=== PATIENT | female | born 1950 | race Hispanic/Latino ===

== ENCOUNTER 2018-11-25 06:53 | Observation (INO) | payer MEDICARE ==
[2018-11-22 12:31] LABS: BASOPHILS # (AUTO) 0.1 (0.0-0.1); BASOPHILS % 0.5 % (0.0-1.0); EOSINOPHILS # (AUTO) 0.3 (0.0-0.4); EOSINOPHILS % 1.9 % (0.0-6.0); HEMATOCRIT 37.9 % (34.2-44.1); HEMOGLOBIN 12.2 g/dL (12.0-16.0); LYMPHOCYTES # (AUTO) 1.3 (1.0-3.2); LYMPHOCYTES % 7.9 % (18.0-39.1); MEAN CORPUSCULAR HEMOGLOBIN 29.7 pg (28-32); MEAN CORPUSCULAR HGB CONC 32.2 g/dL (31-35); MEAN CORPUSCULAR VOLUME 92.2 fL (81-99); MONOCYTES # (AUTO) 0.8 (0.2-0.8); MONOCYTES % 5.1 % (4.4-11.3); NEUTROPHILS # (AUTO) 13.6 (2.1-6.9); NEUTROPHILS % 81.5 % (38.7-80.0); PLATELET COUNT 249 x10e3/uL (140-360); RED BLOOD COUNT 4.11 x10e6/uL (3.6-5.1); RED CELL DISTRIBUTION WIDTH 16.1 % (11.7-14.4)
[2018-11-22 12:51] LABS: ALBUMIN 3.8 g/dL (3.5-5.0); ALBUMIN/GLOBULIN RATIO 1.2 (0.8-2.0); ANION GAP 15.3 mmol/L (8-16); CREATININE, SERUM 1.13 mg/dL (0.57-1.11); POTASSIUM 4.3 mmol/L (3.5-5.1)
--- NOTE | 2018-11-22 13:14 | Diagnostic Imaging Report ---
EXAM: CHEST 2 VIEWS DATE: 11/22/2018 12:19 PM INDICATION: Epigastric pain, preoperative evaluation COMPARISON: None Impression: The trachea is midline. There are nonspecific mildly increased interstitial/reticular opacities present bilaterally. Differential considerations include edema, scarring/fibrotic change, or an atypical infectious/inflammatory process. There is no evidence for large focal consolidation, pneumothorax, or significant pleural effusion. The cardiomediastinal silhouette is within normal limits. No acute osseous abnormalities identified. Signed by: Dr. Bhupinder Tovar MD on 11/22/2018 1:11 PM
[~2018-11-25] VITALS: Ht 157.5 cm; Wt 78.9 kg
[~2018-11-25 06:53] MED LIST: ALENDRONATE SOD70 MG PO; ATORVASTATIN CA10 MG PO; AZATHIOPRINE50 MG PO; BENICAR20 MG PO; METFORMIN HCL1000 MG PO; OMEPRAZOLE40 MG PO; PREDNISONE5 MG PO; VENTOLIN HFA18 GM INH; VITAMIN D250000 UNIT PO; novolog INJ; trelegy INH; tresiba INJ
[2018-11-25] MEDS ORDERED: BUPIVACAINE 0.25%/EPI 30ML SDV INJ ONE (09:51)
[2018-11-25] MEDS ORDERED: IBUPROFEN 800MG/ 250ML 250 ML IV ONE (10:06)
[2018-11-25] MEDS ORDERED: SUGAMMADEX SODIUM 200 MG/2 ML VIAL IV ONE (10:57)
[2018-11-25] MEDS: SODIUM CHLORIDE 0.9% 1000ML 1,000 ML IV SCH ×2 (11:22→21:22)
[2018-11-25] MEDS: PANTOPRAZOLE 40 MG 10ML VIAL IV SCH (11:30)
[2018-11-25] MEDS ORDERED: ONDANSETRON HCL INJ 2MG/ML 2ML 2 MG/ML VIAL IV PRN (11:30)
[2018-11-25] MEDS ORDERED: ACETAMINOPHEN 1000 MG/100 ML IV PRN (11:30)
[2018-11-25] MEDS ORDERED: ALBUTEROL SULFATE HFA 8GM INHALATION AEROSOL INH PRN (11:30)
--- NOTE | 2018-11-25 13:04 | NUR ---
ARRIVED VIA STRETCHER, AA&OX3, 2LNC PER PROTOCOL, TRANSFERRED TO BED WITH ASSIST, 1-2/ ABD PAIN, 4 TROCAR SITES CDI, DTV, ORIENTED TO ROOM AND CALL LIGHT SYSTEM , CALL LIGHT WITHIN REACH, FAMILY AT SIDE
[2018-11-25 13:41] VITALS: BP 154/74
[2018-11-25] MEDS ORDERED: ACETAMINOPHEN 1000 MG/100 ML 100 ML IV PRN (13:45)
[2018-11-25] MEDS ORDERED: CEFAZOLIN SOD 1 GM/NS 50ML 50 ML IV SCH (14:00)
[2018-11-25] MEDS: PREDNISONE 5 MG TAB PO SCH ×2 (15:00→20:50)
[2018-11-25 15:28] VITALS: BP 154/74
[2018-11-25 15:30] VITALS: BP 154/74
--- NOTE | 2018-11-25 15:34 | NUR ---
TOLERATING CLEAR LIQUIDS AT THIS TIME, VOICES NO NEEDS, CALL LIGHT WITHIN REACH
--- NOTE | 2018-11-25 16:24 | Operative Report ---
DATE OF PROCEDURE: 11/25/2018 SURGEON: Pepe Mccollum MD PREOPERATIVE DIAGNOSIS: Cholecystitis and cholelithiasis, rule out peptic ulcer disease. POSTOPERATIVE DIAGNOSIS: Cholecystitis, cholelithiasis, and gastritis. OPERATIONS PERFORMED: Laparoscopic cholecystectomy and EGD. ANESTHESIA: General. COMPLICATIONS: None. ESTIMATED BLOOD LOSS: Minimal. DESCRIPTION OF PROCEDURE: With the patient lying in bed in the supine position, under good general endotracheal anesthesia. The abdomen was prepped with Betadine solution and draped in the usual manner. A Veress needle was introduced into the umbilicus and pneumoperitoneum was established without any difficulty. An 11 mm trocar was placed into the umbilicus and a 10 mm video laparoscope was placed into the intraabdominal cavity. Under direct vision, three 5 mm trocars were placed in the right subcostal region. Video laparoscopy at this point, revealed a gallbladder that was somewhat distended. Some fatty infiltration of the liver, otherwise the rest of the abdominal exploration was within normal limits. The peritoneum overlying the neck of the gallbladder was then opened and the cystic duct was identified. The cystic duct was followed to its junction with the common duct. The cystic duct was then circumferentially dissected away from the common duct, doubly clipped and divided. The cystic artery was similarly doubly clipped and divided, the gallbladder was then slowly and carefully taken off the liver bed using the cautery scissors and perfect hemostasis was ascertained. The gallbladder was then grasped through the umbilical port and removed without any difficulty. Video laparoscopy was then again carried out. The liver bed was found to be perfectly dry, all of the excess fluid was aspirated. The pneumoperitoneum was evacuated and all of the trocars were removed under direct vision. The midline fascia at the umbilicus was then closed with a [id number] of 0 Vicryl. All layers were infiltrated on the way out with solution of 0.25% Marcaine. Subcutaneous tissue was approximated with 3-0 Vicryl, and the skin was closed with subcuticular 5-0 Vicryl. Benzoin, Steri-Strips, and Band-Aids were applied. The sponge, lap, and needle count was correct. The flexible Olympus gastroscope was then introduced into the back of the throat and slowly and carefully advanced, the entire length of the esophagus was found to be within normal limits. The esophagogastric junction was then entered and the stomach was insufflated. The stomach showed the presence of diffuse linear gastritis, was worse in the fundus and the antrum. There was no ulcerations or polypoid masses or tumors identified. The pylorus was then entered and the duodenum was inspected all the way down to the 3rd portion, and was found to be within normal limits. The scope was then slowly and carefully withdrawn. The patient tolerated both procedures well and returned to the recovery room in stable condition. MD IAN Elise/SURESH /[id number]
[2018-11-25 16:47] VITALS: BP 138/66
[2018-11-25] MEDS ORDERED: PHENYLEPHRINE HCL 1% 10 MG/ML VIAL ONE (17:24)
[2018-11-25] MEDS ORDERED: PROPOFOL IV EMULSION 10 MG/ML 20 ML VIAL ONE (17:24)
[2018-11-25] MEDS ORDERED: LIDOCAINE HCL 2% LOCAL INJ 5 ML SDV VIAL INJ ONE (17:24)
[2018-11-25] MEDS ORDERED: HYDROCORTISONE SOD SUCCINATE 100 MG VIAL ONE (17:24)
[2018-11-25] MEDS ORDERED: NEOSTIGMINE 5 MG/5ML SYR ONE (17:24)
[2018-11-25] MEDS ORDERED: GLYCOPYRROLATE INJ 1MG/ 5 ML SYR ONE (17:24)
[2018-11-25] MEDS ORDERED: SEVOFLURANE INHAL SOLN 250 ML PEN BTL ONE (17:24)
[2018-11-25] MEDS ORDERED: CEFAZOLIN SOD 1 GM VIAL ONE (17:24)
[2018-11-25] MEDS ORDERED: ROCURONIUM BROMIDE 10 MG/ML 5ML VIAL ONE (17:24)
[2018-11-25] MEDS ORDERED: ONDANSETRON HCL INJ 2MG/ML 2ML 2 MG/ML VIAL ONE (17:24)
[2018-11-25] MEDS ORDERED: METOPROLOL TARTRATE INJ 1 MG/ML VIAL ONE (17:24)
[2018-11-25] MEDS: CEFAZOLIN SOD 1 GM/NS 50ML 50 ML IV SCH (17:25)
[2018-11-25] MEDS ORDERED: FENTANYL CITRATE/PF 100MCG/2 ML INJ ONE (17:51)
[2018-11-25] MEDS ORDERED: KETAMINE HCL INJ 50 MG/ML 10 ML VIAL ONE (17:51)
[2018-11-25] MEDS ORDERED: MIDAZOLAM HCL 2 MG/2 ML VIAL ONE (17:51)
[2018-11-25] MEDS ORDERED: DEXTROSE 50% SYRINGE 50 ML IV PRN (18:30)
--- NOTE | 2018-11-25 18:30 | NUR ---
MD Antwan RYAN INTO SEE PT, DISCUSSED POC
--- NOTE | 2018-11-25 19:16 | NUR ---
received patient aaox3, family members at bedside. stable condition. no needs voiced at this time. bed locked and in lowest position, call light within easy reach.
[2018-11-25 20:40] VITALS: BP 131/66
[2018-11-25] MEDS: INSULIN REGULAR, HUMAN 100 UNIT/1 ML 3ML VIAL SQ SCH (20:50)
--- NOTE | 2018-11-25 20:50 | NUR ---
patient dtv. encouraged and assisted patient to restroom, voided 40cc yellow urine. returned to bed. no further needs voiced. bed locked, lowest position, call light within reach. instructed to call for assist as needed.
[2018-11-25 20:54] VITALS: BP 131/66
[2018-11-25] MEDS: HYDROCODONE/APAP 7.5MG-325MG 1 EA TAB PO PRN (21:37)
[2018-11-26 00:42] VITALS: BP 124/64
--- NOTE | 2018-11-26 00:44 | NUR ---
walking rounds, patient resting with eyes closed. no distress observed.
[2018-11-26] MEDS: SODIUM CHLORIDE 0.9% 1000ML 1,000 ML IV SCH (01:00)
[2018-11-26] MEDS: CEFAZOLIN SOD 1 GM/NS 50ML 50 ML IV SCH (01:00)
[2018-11-26] MEDS: HYDROCODONE/APAP 7.5MG-325MG 1 EA TAB PO PRN ×2 (04:31→10:40)
[2018-11-26 04:50] VITALS: BP 139/67
[2018-11-26 06:43] LABS: BASOPHILS # (AUTO) 0.1 (0.0-0.1); BASOPHILS % 0.5 % (0.0-1.0); EOSINOPHILS # (AUTO) 0.3 (0.0-0.4); EOSINOPHILS % 2.9 % (0.0-6.0); HEMATOCRIT 31.5 % (34.2-44.1); HEMOGLOBIN 10.1 g/dL (12.0-16.0); LYMPHOCYTES # (AUTO) 1.5 (1.0-3.2); LYMPHOCYTES % 14.4 % (18.0-39.1); MEAN CORPUSCULAR HEMOGLOBIN 29.8 pg (28-32); MEAN CORPUSCULAR HGB CONC 32.1 g/dL (31-35); MEAN CORPUSCULAR VOLUME 92.9 fL (81-99); MONOCYTES # (AUTO) 0.7 (0.2-0.8); NEUTROPHILS # (AUTO) 7.8 (2.1-6.9); NEUTROPHILS % 73.7 % (38.7-80.0); PLATELET COUNT 200 x10e3/uL (140-360); RED BLOOD COUNT 3.39 x10e6/uL (3.6-5.1); RED CELL DISTRIBUTION WIDTH 16.6 % (11.7-14.4)
[2018-11-26 07:00] LABS: ANION GAP 12.4 mmol/L (8-16); CALCIUM 9.2 mg/dL (8.4-10.2); CREATININE, SERUM 1.06 mg/dL (0.57-1.11); POTASSIUM 5.4 mmol/L (3.5-5.1)
[2018-11-26 08:22] VITALS: BP 119/62
[2018-11-26] MEDS: INSULIN REGULAR, HUMAN 100 UNIT/1 ML 3ML VIAL SQ SCH ×2 (08:30→11:30)
[2018-11-26] MEDS ORDERED: OLMESARTAN 20 MG TAB PO SCH (09:00)
[2018-11-26] MEDS: PREDNISONE 5 MG TAB PO SCH (09:28)
[2018-11-26] MEDS: PANTOPRAZOLE 40 MG 10ML VIAL IV SCH (09:29)
[2018-11-26 09:33] VITALS: BP 119/62
[2018-11-26] MEDS ORDERED: TYLENOL WITH C1 EACH PO (09:38)
[2018-11-26] MEDS ORDERED: KEFLEX500 MG PO (09:38)
[2018-11-26] MEDS ORDERED: PANTOPRAZOLE SO40 MG PO (09:39)
--- NOTE | 2018-11-26 11:47 | NUR ---
DISCHARGE INSTRUCTIONS REVIEWED, PT VERBALIZED UNDERSTANDING, WHEELED OFF UNIT VIA WC FOR DISCHARGE, NO CHANGE IN CONDITION
[2018-11-26 12:09] VITALS: BP 144/71
== END 2018-11-26 12:10 | disposition home or self-care (01) ==
LOC: OR 06:53 → PACU V 11:27 → MED/SURG 13:39
PROVIDERS: ADMIT Surgery; ATTEND Surgery
DX: K80.10 Calculus of gallbladder with chronic cholecystitis without obstruction (principal); J44.9 Chronic obstructive pulmonary disease, unspecified; E11.9 Type 2 diabetes mellitus without complications; K29.71 Gastritis, unspecified, with bleeding
CPT/HCPCS: 36415 ×3; 43235; 47562; 71046; 80048; 80053; 82948 ×2; 85025 ×2; 88304; 93005; C1766; C9113; G0378 ×2; J0690 ×3; J1720; J1817; J2001; J2250; J2370; J2405; J2704; J3010; J3490; J7030; J7512 ×2; 43239

== ENCOUNTER 2021-03-15 12:19 | Emergency (ER) | payer MEDICARE ==
[~2021-03-15] VITALS: Ht 157.5 cm; Wt 78.9 kg
[~2021-03-15 12:19] MED LIST changes: +KEFLEX500 MG PO; +PANTOPRAZOLE SO40 MG PO; +TYLENOL WITH C1 EACH PO
[2021-03-15] MEDS ORDERED: CASIRIVIMAB/IMDEVIMAB 10 ML in SODIUM CHLORIDE 0.9% 100 ML IV ONE (12:45)
== END 2021-03-15 14:16 | disposition home or self-care (01) ==
LOC: ER 12:25
DX: U07.1 COVID-19 (principal); R06.00 Dyspnea, unspecified; I10 Essential (primary) hypertension; E11.9 Type 2 diabetes mellitus without complications; M06.9 Rheumatoid arthritis, unspecified; K21.9 Gastro-esophageal reflux disease without esophagitis; Z87.09 Personal history of other diseases of the respiratory system
CPT/HCPCS: 99283; J7050

== ENCOUNTER 2021-10-30 13:09 | Inpatient (IN) | payer MEDICARE ==
[~2021-10-30] VITALS: Ht 154.9 cm; Wt 72.1 kg
[2021-10-30] VITALS (9 sets, daily range): BP systolic 123–155; BP diastolic 60–78
[2021-10-30] MEDS: ALBUTEROL/IPRATROPIUM 3 ML NEB NEB SCH ×2 (13:00→14:28)
[2021-10-30] MEDS ORDERED: Vancomycin IV 1 GM in SODIUM CHLORIDE 0.9% 250ML 250 ML IV SCH ×2 (13:30→16:15)
[2021-10-30] MEDS ORDERED: METHYLPREDNISOLONE SOD SUCC 125 MG/2ML VIAL IV ONE (14:00)
[2021-10-30 14:17] LABS: ABG HCO3 59 mmol/L (22-26); ABG PCO2 88 mmHg (35-45); ABG PH 7.43 (7.35-7.45); ABG PO2 398 mmHg (80-105); ABG TCO2 50
[2021-10-30 14:19] LABS: BASOPHILS # (AUTO) 0.1 (0.0-0.1); BASOPHILS % 0.4 % (0.0-1.0); EOSINOPHILS # (AUTO) 0.5 (0.0-0.4); EOSINOPHILS % 2.4 % (0.0-6.0); HEMATOCRIT 34.9 % (34.2-44.1); HEMOGLOBIN 10.6 g/dL (12.0-16.0); LYMPHOCYTES # (AUTO) 3.9 (1.0-3.2); LYMPHOCYTES % 20.8 % (18.0-39.1); MEAN CORPUSCULAR HGB CONC 30.4 g/dL (31-35); MONOCYTES # (AUTO) 1.7 (0.2-0.8); MONOCYTES % 8.8 % (4.4-11.3); NEUTROPHILS # (AUTO) 12.5 (2.1-6.9); NEUTROPHILS % 65.8 % (38.7-80.0); PLATELET COUNT 352 x10e3/uL (140-360); RED BLOOD COUNT 3.42 x10e6/uL (3.6-5.1); RED CELL DISTRIBUTION WIDTH 14.5 % (11.7-14.4)
[2021-10-30 14:22] LABS: CLARITY,URINE SL CLOUDY (CLEAR); COLOR,URINE YELLOW (YELLOW); KETONES,URINE NEGATIVE (NEGATIVE); LEUKOCYTE ESTERASE ,URINE TRACE (NEGATIVE); NITRITE,URINE NEGATIVE (NEGATIVE); PROTEIN,URINE DIPSTICK 2+ (NEGATIVE); URINE UROBILINOGEN 0.2 mg/dL (0.2 - 1)
[2021-10-30 14:23] LABS: INR 0.72; PROTHROMBIN TIME 10.9 seconds (11.9-14.5)
[2021-10-30 14:24] LABS: PARTIAL THROMBOPLASTIN TIME 24.7 seconds (23.8-35.5)
[2021-10-30 14:29] LABS: BACTERIA,URINE MODERATE /HPF; EPITHELIAL CELLS,URINE MODERATE /LPF; RBC,URINE 0-5 /HPF (0-5); RENAL EPITHELIAL CELLS,URINE FEW; WBC,URINE (MAN) 0-5 /HPF (0-5)
[2021-10-30 14:38] LABS: ALBUMIN 3.2 g/dL (3.5-5.0); ALBUMIN/GLOBULIN RATIO 0.7 (0.8-2.0); ANION GAP 17.9 mmol/L (8-16); CALCIUM 9.7 mg/dL (8.4-10.2); CREATININE, SERUM 3.12 mg/dL (0.57-1.11)
[2021-10-30 14:39] LABS: POTASSIUM 2.9 mmol/L (3.5-5.1)
[2021-10-30] MEDS ORDERED: KCL 20 MEQ PACKET/ ORAL SOLN PO ONE (16:15)
[2021-10-30] MEDS ORDERED: ONDANSETRON HCL INJ 2MG/ML 2ML 2 MG/ML VIAL IV PRN ×2 (16:15→16:45)
[2021-10-30] MEDS: CEFTRIAXONE 1 GM VIAL IV SCH (16:15)
[2021-10-30] MEDS ORDERED: ALBUTEROL/IPRATROPIUM 3 ML NEB NEB PRN (16:45)
[2021-10-30] MEDS ORDERED: KCL 20 MEQ PACKET/ ORAL SOLN ONE (18:05)
[2021-10-30] MEDS: ATORVASTATIN 10 MG TAB PO SCH (21:18)
[2021-10-31] VITALS (24 sets, daily range): BP systolic 111–148; BP diastolic 53–98
[2021-10-31] MEDS: CEFTRIAXONE 1 GM VIAL IV SCH (01:33)
[2021-10-31] MEDS ORDERED: PANTOPRAZOLE SOD 40 MG TABEC PO SCH (07:30)
[2021-10-31 07:33] LABS: BASOPHILS % 0.1 % (0.0-1.0); HEMATOCRIT 30.2 % (34.2-44.1); HEMOGLOBIN 9.3 g/dL (12.0-16.0); LYMPHOCYTES # (AUTO) 0.5 (1.0-3.2); LYMPHOCYTES % 3.2 % (18.0-39.1); MEAN CORPUSCULAR HEMOGLOBIN 31.2 pg (28-32); MEAN CORPUSCULAR HGB CONC 30.8 g/dL (31-35); MEAN CORPUSCULAR VOLUME 101.3 fL (81-99); MONOCYTES # (AUTO) 0.6 (0.2-0.8); NEUTROPHILS # (AUTO) 14.1 (2.1-6.9); NEUTROPHILS % 91.6 % (38.7-80.0); PLATELET COUNT 285 x10e3/uL (140-360); RED BLOOD COUNT 2.98 x10e6/uL (3.6-5.1); RED CELL DISTRIBUTION WIDTH 14.2 % (11.7-14.4)
[2021-10-31 07:57] LABS: ALBUMIN 2.8 g/dL (3.5-5.0); ALBUMIN/GLOBULIN RATIO 0.8 (0.8-2.0); ANION GAP 17.1 mmol/L (8-16); CALCIUM 9.2 mg/dL (8.4-10.2); CREATININE, SERUM 2.55 mg/dL (0.57-1.11); POTASSIUM 4.1 mmol/L (3.5-5.1)
[2021-10-31] MEDS ORDERED: DEXTROSE 50% SYRINGE 50 ML IV PRN (10:30)
[2021-10-31] MEDS ORDERED: METHYLPREDNISOLONE SOD SUCC 40 MG/ML VIAL 1ML IV SCH (10:30)
[2021-10-31] MEDS ORDERED: AZATHIOPRINE 50 MG TAB PO SCH (11:00)
[2021-10-31] MEDS: INSULIN LISPRO 100 UNIT/1 ML 3ML VIAL SQ SCH ×5 (11:25→20:17)
[2021-10-31] MEDS: ATORVASTATIN 10 MG TAB PO SCH (20:06)
[2021-10-31] MEDS: METHYLPREDNISOLONE SOD SUCC 40 MG/ML VIAL 1ML IV SCH (20:06)
[2021-10-31] MEDS: INSULIN GLARGINE 100 UNITS/ML VIAL SQ SCH (21:14)
[2021-11-01] VITALS (25 sets, daily range): BP systolic 122–165; BP diastolic 57–92
[2021-11-01] MEDS: METHYLPREDNISOLONE SOD SUCC 40 MG/ML VIAL 1ML IV SCH ×3 (03:34→21:14)
[2021-11-01 05:39] LABS: BASOPHILS % 0.2 % (0.0-1.0); HEMATOCRIT 29.3 % (34.2-44.1); HEMOGLOBIN 8.9 g/dL (12.0-16.0); LYMPHOCYTES # (AUTO) 0.3 (1.0-3.2); LYMPHOCYTES % 1.8 % (18.0-39.1); MEAN CORPUSCULAR HEMOGLOBIN 31.1 pg (28-32); MEAN CORPUSCULAR HGB CONC 30.4 g/dL (31-35); MEAN CORPUSCULAR VOLUME 102.4 fL (81-99); MONOCYTES # (AUTO) 0.5 (0.2-0.8); MONOCYTES % 2.6 % (4.4-11.3); NEUTROPHILS # (AUTO) 17.7 (2.1-6.9); NEUTROPHILS % 94.6 % (38.7-80.0); PLATELET COUNT 342 x10e3/uL (140-360); RED BLOOD COUNT 2.86 x10e6/uL (3.6-5.1); RED CELL DISTRIBUTION WIDTH 14.1 % (11.7-14.4)
[2021-11-01 06:03] LABS: ALBUMIN 2.9 g/dL (3.5-5.0); ALBUMIN/GLOBULIN RATIO 0.8 (0.8-2.0); ANION GAP 14.3 mmol/L (8-16); CALCIUM 9.4 mg/dL (8.4-10.2); CREATININE, SERUM 1.85 mg/dL (0.57-1.11); POTASSIUM 4.3 mmol/L (3.5-5.1)
[2021-11-01 06:26] LABS: MAGNESIUM 2.3 MG/DL (1.3-2.1); PHOSPHORUS 3.3 MG/DL (2.3-4.7)
[2021-11-01 06:46] LABS: THYROID STIMULATING HORMONE 0.265 uIU/mL (0.350-4.940)
[2021-11-01] MEDS: INSULIN LISPRO 100 UNIT/1 ML 3ML VIAL SQ SCH ×7 (08:08→21:20)
[2021-11-01] MEDS: COLLAGENASE 5 GM TUBE TP SCH (10:48)
[2021-11-01] MEDS ORDERED: HOME MEDICATION--PATIENTS OWN PO SCH (21:00)
[2021-11-01] MEDS: ATORVASTATIN 10 MG TAB PO SCH (21:14)
[2021-11-01] MEDS: OFEV 150 MG PO SCH (21:15)
[2021-11-01] MEDS: INSULIN GLARGINE 100 UNITS/ML VIAL SQ SCH (21:20)
[2021-11-02] VITALS (24 sets, daily range): BP systolic 132–169; BP diastolic 54–95
[2021-11-02] MEDS: METHYLPREDNISOLONE SOD SUCC 40 MG/ML VIAL 1ML IV SCH ×2 (04:02→13:33)
[2021-11-02] MEDS: INSULIN LISPRO 100 UNIT/1 ML 3ML VIAL SQ SCH ×7 (08:04→21:13)
[2021-11-02] MEDS: COLLAGENASE 5 GM TUBE TP SCH (08:33)
[2021-11-02] MEDS: OFEV 150 MG PO SCH ×2 (08:33→20:54)
[2021-11-02] MEDS ORDERED: ACETAMINOPHEN 325 MG TAB PO PRN (20:00)
[2021-11-02] MEDS: ATORVASTATIN 10 MG TAB PO SCH (20:52)
[2021-11-02] MEDS: INSULIN GLARGINE 100 UNITS/ML VIAL SQ SCH (21:13)
[2021-11-03] VITALS (15 sets, daily range): BP systolic 133–172; BP diastolic 61–92
[2021-11-03] MEDS: METHYLPREDNISOLONE SOD SUCC 40 MG/ML VIAL 1ML IV SCH ×2 (05:40→17:29)
[2021-11-03 06:46] LABS: BASOPHILS % 0.1 % (0.0-1.0); HEMATOCRIT 33.3 % (34.2-44.1); HEMOGLOBIN 10.1 g/dL (12.0-16.0); LYMPHOCYTES # (AUTO) 1.1 (1.0-3.2); LYMPHOCYTES % 6.6 % (18.0-39.1); MEAN CORPUSCULAR HEMOGLOBIN 31.3 pg (28-32); MEAN CORPUSCULAR HGB CONC 30.3 g/dL (31-35); MEAN CORPUSCULAR VOLUME 103.1 fL (81-99); MONOCYTES # (AUTO) 1.4 (0.2-0.8); MONOCYTES % 8.3 % (4.4-11.3); NEUTROPHILS # (AUTO) 14.1 (2.1-6.9); NEUTROPHILS % 84.4 % (38.7-80.0); PLATELET COUNT 341 x10e3/uL (140-360); RED BLOOD COUNT 3.23 x10e6/uL (3.6-5.1)
[2021-11-03 07:33] LABS: ALBUMIN/GLOBULIN RATIO 0.8 (0.8-2.0); ANION GAP 11.3 mmol/L (8-16); CALCIUM 9.5 mg/dL (8.4-10.2); CREATININE, SERUM 1.07 mg/dL (0.57-1.11); POTASSIUM 4.3 mmol/L (3.5-5.1)
[2021-11-03] MEDS: INSULIN LISPRO 100 UNIT/1 ML 3ML VIAL SQ SCH ×7 (08:39→20:52)
[2021-11-03] MEDS: COLLAGENASE 5 GM TUBE TP SCH (09:00)
[2021-11-03] MEDS ORDERED: FUROSEMIDE INJ 10 MG/ML 2 ML VIAL IV SCH (09:00)
[2021-11-03] MEDS ORDERED: FUROSEMIDE INJ 10 MG/ML 4 ML VIAL IV SCH (09:00)
[2021-11-03] MEDS: OFEV 150 MG PO SCH ×2 (09:02→20:43)
[2021-11-03] MEDS: ATORVASTATIN 10 MG TAB PO SCH (20:42)
[2021-11-03] MEDS: INSULIN GLARGINE 100 UNITS/ML VIAL SQ SCH (20:50)
[2021-11-04] VITALS (7 sets, daily range): BP systolic 139–166; BP diastolic 78–101
[2021-11-04] MEDS: METHYLPREDNISOLONE SOD SUCC 40 MG/ML VIAL 1ML IV SCH ×2 (05:33→17:29)
[2021-11-04] MEDS: INSULIN LISPRO 100 UNIT/1 ML 3ML VIAL SQ SCH ×7 (08:25→20:27)
[2021-11-04] MEDS: BUMETANIDE 1 MG TAB PO SCH (08:46)
[2021-11-04] MEDS: ACETAZOLAMIDE 250 MG TAB PO SCH (08:46)
[2021-11-04] MEDS: OFEV 150 MG PO SCH ×2 (08:46→20:18)
[2021-11-04] MEDS: ATORVASTATIN 10 MG TAB PO SCH (20:18)
[2021-11-04] MEDS: INSULIN GLARGINE 100 UNITS/ML VIAL SQ SCH (20:27)
[2021-11-05] VITALS (12 sets, daily range): BP systolic 128–153; BP diastolic 73–87
[2021-11-05] MEDS: METHYLPREDNISOLONE SOD SUCC 40 MG/ML VIAL 1ML IV SCH ×2 (05:54→17:52)
[2021-11-05 06:16] LABS: ALBUMIN 3.1 g/dL (3.5-5.0); ALBUMIN/GLOBULIN RATIO 0.9 (0.8-2.0); ANION GAP 16.5 mmol/L (8-16); CALCIUM 9.4 mg/dL (8.4-10.2); CREATININE, SERUM 1.33 mg/dL (0.57-1.11); POTASSIUM 4.5 mmol/L (3.5-5.1)
[2021-11-05] MEDS: INSULIN LISPRO 100 UNIT/1 ML 3ML VIAL SQ SCH ×7 (07:30→21:00)
[2021-11-05] MEDS: ACETAZOLAMIDE 250 MG TAB PO SCH (10:07)
[2021-11-05] MEDS: BUMETANIDE 1 MG TAB PO SCH (10:07)
[2021-11-05] MEDS: OFEV 150 MG PO SCH ×2 (10:08→21:00)
[2021-11-05] MEDS: ATORVASTATIN 10 MG TAB PO SCH (21:00)
[2021-11-05] MEDS: INSULIN GLARGINE 100 UNITS/ML VIAL SQ SCH (21:00)
[2021-11-06] VITALS (18 sets, daily range): BP systolic 83–149; BP diastolic 24–107
[2021-11-06] MEDS: METHYLPREDNISOLONE SOD SUCC 40 MG/ML VIAL 1ML IV SCH (05:55)
[2021-11-06 07:04] LABS: BASOPHILS # (AUTO) 0.1 (0.0-0.1); BASOPHILS % 0.3 % (0.0-1.0); EOSINOPHILS % 0.1 % (0.0-6.0); HEMATOCRIT 37.9 % (34.2-44.1); HEMOGLOBIN 11.9 g/dL (12.0-16.0); LYMPHOCYTES # (AUTO) 1.1 (1.0-3.2); LYMPHOCYTES % 4.3 % (18.0-39.1); MEAN CORPUSCULAR HEMOGLOBIN 31.5 pg (28-32); MEAN CORPUSCULAR HGB CONC 31.4 g/dL (31-35); MEAN CORPUSCULAR VOLUME 100.3 fL (81-99); MONOCYTES # (AUTO) 1.5 (0.2-0.8); MONOCYTES % 5.9 % (4.4-11.3); NEUTROPHILS # (AUTO) 22.5 (2.1-6.9); PLATELET COUNT 261 x10e3/uL (140-360); RED BLOOD COUNT 3.78 x10e6/uL (3.6-5.1); RED CELL DISTRIBUTION WIDTH 13.9 % (11.7-14.4)
[2021-11-06 07:21] LABS: ANION GAP 13.1 mmol/L (8-16); CALCIUM 9.1 mg/dL (8.4-10.2); CREATININE, SERUM 1.32 mg/dL (0.57-1.11); POTASSIUM 4.1 mmol/L (3.5-5.1)
[2021-11-06] MEDS: INSULIN LISPRO 100 UNIT/1 ML 3ML VIAL SQ SCH ×6 (07:30→16:30)
[2021-11-06 08:28] LABS: LYMPHOCYTES % (MANUAL) 5 % (19-48); MONOCYTES % (MANUAL) 3 % (3.4-9.0); NEUTROPHILS % (MANUAL) 92 % (40-74); PLATELET ESTIMATE ADEQUATE; PLATELET MORPHOLOGY COMMENT NORMAL; RBC MORPHOLOGY COMMENT NORMAL
[2021-11-06] MEDS: ACETAZOLAMIDE 250 MG TAB PO SCH (08:35)
[2021-11-06] MEDS: OFEV 150 MG PO SCH (08:36)
[2021-11-06] MEDS: BUMETANIDE 1 MG TAB PO SCH (08:36)
[2021-11-06] MEDS ORDERED: TRIAMCINOLONE ACET 40 MG/ML VIAL IM ONE (10:30)
[2021-11-06] MEDS ORDERED: PREDNISONE 10 MG TAB PO SCH (17:00)
[2021-11-07] MEDS ORDERED: OMEPRAZOLE 20 MG CAP PO SCH (09:00)
[2021-11-07] MEDS ORDERED: ASPIRIN 81 MG ENTERIC COATED PO SCH (09:00)
== END 2021-11-06 21:42 | disposition hospice, home (50) | DRG 871 ==
LOC: ER 13:24 → ERHOLD 16:29 → ICU 19:09
PROVIDERS: ADMIT Internal Medicine; ATTEND Internal Medicine
PROC: 5A09357 Assistance with Respiratory Ventilation, Less than 24 Consecutive Hours, Continuous Positive Airway Pressure (ICD-10-PCS; principal; 2021-10-30)
PROC: 3E03329 Introduction of Other Anti-infective into Peripheral Vein, Percutaneous Approach (ICD-10-PCS; 2021-10-30)
PROC: 5A0935A Assistance with Respiratory Ventilation, Less than 24 Consecutive Hours, High Flow/Velocity Cannula (ICD-10-PCS; 2021-10-31)
DX: A41.9 Sepsis, unspecified organism (principal); I50.33 Acute on chronic diastolic (congestive) heart failure; J15.9 Unspecified bacterial pneumonia; J96.21 Acute and chronic respiratory failure with hypoxia; N39.0 Urinary tract infection, site not specified; E87.2 Acidosis; J44.0 Chronic obstructive pulmonary disease with (acute) lower respiratory infection; E11.52 Type 2 diabetes mellitus with diabetic peripheral angiopathy with gangrene; I96 Gangrene, not elsewhere classified; N17.9 Acute kidney failure, unspecified; L03.116 Cellulitis of left lower limb; L03.115 Cellulitis of right lower limb; I13.0 Hypertensive heart and chronic kidney disease with heart failure and stage 1 through stage 4 chronic kidney disease, or unspecified chronic kidney disease; R65.20 Severe sepsis without septic shock; J84.112 Idiopathic pulmonary fibrosis; E87.6 Hypokalemia; Z79.4 Long term (current) use of insulin; E11.22 Type 2 diabetes mellitus with diabetic chronic kidney disease; N18.32 Chronic kidney disease, stage 3b; Z88.8 Allergy status to other drugs, medicaments and biological substances; Z91.012 Allergy to eggs; B96.89 Other specified bacterial agents as the cause of diseases classified elsewhere; R33.9 Retention of urine, unspecified; R31.29 Other microscopic hematuria; E66.9 Obesity, unspecified; Z68.30 Body mass index [BMI] 30.0-30.9, adult
CPT/HCPCS: 36415; 36600; 51700; 71045; 76770; 80048; 80053; 80061; 81001; 82607; 82746; 82805; 82948; 83036; 83605; 83735; 83880; 84100; 84443; 85025; 85610; 85730; 87040; 87086; 87186; 93005; 93306; 94640; 94660; 94799; 96372; 99251; 99285; J0456; J0696; J1815; J1940; J2543; J2920; J2930; J3301; J3370; J7050; J7512

== ENCOUNTER 2021-11-12 15:34 | Emergency (ER) | payer MEDICARE ==
[~2021-11-12] VITALS: Ht 154.9 cm; Wt 72.1 kg
== END 2021-11-12 18:28 | disposition home or self-care (01) ==
LOC: ER 15:38
DX: Z46.6 Encounter for fitting and adjustment of urinary device (principal); I10 Essential (primary) hypertension; J84.10 Pulmonary fibrosis, unspecified; E11.9 Type 2 diabetes mellitus without complications; M06.9 Rheumatoid arthritis, unspecified
CPT/HCPCS: 51700; 93005; 99283

== ENCOUNTER 2021-11-15 20:36 | Inpatient (IN) | payer MEDICARE ==
[~2021-11-15] VITALS: Ht 154.9 cm; Wt 69.9 kg
[2021-11-15] MEDS ORDERED: SODIUM CHLORIDE 0.9% 1000ML 1,000 ML IV SCH ×3 (21:30→23:45)
[2021-11-15 21:53] LABS: BASOPHILS % 0.1 % (0.0-1.0); HEMATOCRIT 28.3 % (34.2-44.1); HEMOGLOBIN 8.6 g/dL (12.0-16.0); LYMPHOCYTES # (AUTO) 0.7 (1.0-3.2); LYMPHOCYTES % 3.5 % (18.0-39.1); MEAN CORPUSCULAR HGB CONC 30.4 g/dL (31-35); MEAN CORPUSCULAR VOLUME 102.2 fL (81-99); MONOCYTES # (AUTO) 1.1 (0.2-0.8); MONOCYTES % 5.2 % (4.4-11.3); NEUTROPHILS # (AUTO) 18.5 (2.1-6.9); NEUTROPHILS % 89.8 % (38.7-80.0); PLATELET COUNT 247 x10e3/uL (140-360); RED BLOOD COUNT 2.77 x10e6/uL (3.6-5.1); RED CELL DISTRIBUTION WIDTH 14.5 % (11.7-14.4)
[2021-11-15 22:08] LABS: ALBUMIN 2.8 g/dL (3.5-5.0); ANION GAP 19.7 mmol/L (8-16); CALCIUM 8.5 mg/dL (8.4-10.2); CREATININE, SERUM 3.63 mg/dL (0.57-1.11); POTASSIUM 4.7 mmol/L (3.5-5.1)
[2021-11-15 23:04] LABS: CLARITY,URINE SL CLOUDY (CLEAR); COLOR,URINE YELLOW (YELLOW); LEUKOCYTE ESTERASE ,URINE 1+ (NEGATIVE)
[2021-11-15 23:05] LABS: KETONES,URINE TRACE (NEGATIVE); NITRITE,URINE NEGATIVE (NEGATIVE); PROTEIN,URINE DIPSTICK 2+ (NEGATIVE); URINE UROBILINOGEN 0.2 mg/dL (0.2 - 1)
[2021-11-15 23:21] LABS: BACTERIA,URINE MANY /HPF; EPITHELIAL CELLS,URINE FEW /LPF; RBC,URINE >50 /HPF (0-5); WBC,URINE (MAN) >50 /HPF (0-5)
[2021-11-15 23:22] LABS: TRANSITIONAL EPI CELLS,URINE FEW
[2021-11-15 23:30] LABS: INR 0.78; PARTIAL THROMBOPLASTIN TIME 26.2 seconds (23.8-35.5); PROTHROMBIN TIME 11.6 seconds (11.9-14.5)
[2021-11-16] VITALS (25 sets, daily range): BP systolic 78–161; BP diastolic 24–72
[2021-11-16] MEDS: SODIUM CHLORIDE 0.9% 1000ML 1,000 ML IV SCH ×3 (00:15→16:52)
[2021-11-16] MEDS ORDERED: DEXTROSE 50% SYRINGE 50 ML IV PRN (00:15)
[2021-11-16] MEDS ORDERED: ONDANSETRON HCL INJ 2MG/ML 2ML 2 MG/ML VIAL IV PRN (00:15)
[2021-11-16] MEDS ORDERED: NOREPINEPHRINE 8 MG/D5W 250 ML 250 ML IV SCH (01:45)
[2021-11-16] MEDS ORDERED: NOREPINEPHRINE 8 MG/D5W 250 ML 250 ML ONE (01:48)
[2021-11-16] MEDS ORDERED: SODIUM CHLORIDE 0.9% 1000ML 1,000 ML IV SCH (02:00)
[2021-11-16 06:26] LABS: BASOPHILS % 0.1 % (0.0-1.0); HEMATOCRIT 28.7 % (34.2-44.1); HEMOGLOBIN 8.6 g/dL (12.0-16.0); LYMPHOCYTES # (AUTO) 0.3 (1.0-3.2); LYMPHOCYTES % 1.4 % (18.0-39.1); MEAN CORPUSCULAR HEMOGLOBIN 31.2 pg (28-32); MONOCYTES # (AUTO) 1.5 (0.2-0.8); MONOCYTES % 6.5 % (4.4-11.3); NEUTROPHILS # (AUTO) 20.1 (2.1-6.9); PLATELET COUNT 275 x10e3/uL (140-360); RED BLOOD COUNT 2.76 x10e6/uL (3.6-5.1); RED CELL DISTRIBUTION WIDTH 14.7 % (11.7-14.4)
[2021-11-16 06:35] LABS: CALCIUM 7.7 mg/dL (8.4-10.2); CREATININE, SERUM 3.47 mg/dL (0.57-1.11)
[2021-11-16 07:06] LABS: BAND NEUTROPHILS % (MANUAL) 1 %; MONOCYTES % (MANUAL) 8 % (3.4-9.0); NEUTROPHILS % (MANUAL) 91 % (40-74); PLATELET ESTIMATE ADEQUATE; PLATELET MORPHOLOGY COMMENT NORMAL
[2021-11-16 07:07] LABS: RBC MORPHOLOGY COMMENT ABNORMAL
[2021-11-16] MEDS: INSULIN REGULAR, HUMAN 100 UNIT/1 ML SQ SCH ×4 (07:27→21:00)
[2021-11-16] MEDS ORDERED: VASOPRESSIN 60 UNIT in DEXTROSE 5% 50ML 57 ML IV PRN (10:45)
[2021-11-16] MEDS ORDERED: ALBUTEROL SULFATE HFA 8GM INHALATION AEROSOL INH PRN (10:45)
[2021-11-17] VITALS (24 sets, daily range): BP systolic 93–168; BP diastolic 41–77
[2021-11-17] MEDS: SODIUM CHLORIDE 0.9% 1000ML 1,000 ML IV SCH (02:24)
[2021-11-17 06:55] LABS: BASOPHILS % 0.1 % (0.0-1.0); EOSINOPHILS # (AUTO) 0.1 (0.0-0.4); EOSINOPHILS % 0.6 % (0.0-6.0); HEMATOCRIT 26.2 % (34.2-44.1); HEMOGLOBIN 7.7 g/dL (12.0-16.0); LYMPHOCYTES # (AUTO) 0.6 (1.0-3.2); LYMPHOCYTES % 3.6 % (18.0-39.1); MEAN CORPUSCULAR HEMOGLOBIN 31.4 pg (28-32); MEAN CORPUSCULAR HGB CONC 29.4 g/dL (31-35); MEAN CORPUSCULAR VOLUME 106.9 fL (81-99); MONOCYTES # (AUTO) 1.1 (0.2-0.8); NEUTROPHILS # (AUTO) 13.7 (2.1-6.9); NEUTROPHILS % 87.9 % (38.7-80.0); PLATELET COUNT 226 x10e3/uL (140-360); RED BLOOD COUNT 2.45 x10e6/uL (3.6-5.1); RED CELL DISTRIBUTION WIDTH 14.9 % (11.7-14.4)
[2021-11-17 07:15] LABS: ANION GAP 17.1 mmol/L (8-16); CREATININE, SERUM 2.12 mg/dL (0.57-1.11); POTASSIUM 4.1 mmol/L (3.5-5.1)
[2021-11-17] MEDS: INSULIN REGULAR, HUMAN 100 UNIT/1 ML SQ SCH ×4 (07:28→21:51)
[2021-11-17] MEDS ORDERED: GUAIFENESIN/CODEINE 5 ML LIQD PO PRN (08:45)
[2021-11-17] MEDS ORDERED: ACETAMINOPHEN 325 MG TAB PO PRN ×2 (08:45)
[2021-11-17] MEDS ORDERED: OFEV150 MG PO (08:59)
[2021-11-17] MEDS ORDERED: [UNRECOGNIZED DRUG - OTHER] TP (09:07)
[2021-11-17] MEDS: BUSPIRONE HCL 5 MG TAB PO SCH ×3 (09:17→21:19)
[2021-11-17] MEDS: PANTOPRAZOLE SOD 40 MG TABEC PO SCH (09:17)
[2021-11-17] MEDS: NINTEDANIB ESYLATE 150 MG PO SCH ×2 (09:23→16:46)
[2021-11-17] MEDS: METHYLPREDNISOLONE SOD SUCC 40 MG/ML VIAL 1ML IV SCH ×2 (11:37→21:19)
[2021-11-17] MEDS: [UNRECOGNIZED DRUG - MIXTURE] TOP SCH ×2 (11:38→16:46)
[2021-11-17] MEDS: FLUCONAZOLE 200 MG/100 ML 100 ML IV SCH (11:38)
[2021-11-17] MEDS: DEXTROSE 5%/0.45% SOD CHL 1,000 ML IV SCH (14:39)
[2021-11-17] MEDS: BALSAM PERU/CASTOR OIL 60 GM OINT...G. TP SCH (16:48)
[2021-11-18] VITALS (8 sets, daily range): BP systolic 128–161; BP diastolic 59–75
[2021-11-18] MEDS: DEXTROSE 5%/0.45% SOD CHL 1,000 ML IV SCH (03:15)
[2021-11-18 05:46] LABS: BASOPHILS % 0.1 % (0.0-1.0); HEMATOCRIT 27.4 % (34.2-44.1); LYMPHOCYTES # (AUTO) 0.3 (1.0-3.2); LYMPHOCYTES % 2.5 % (18.0-39.1); MEAN CORPUSCULAR HEMOGLOBIN 31.1 pg (28-32); MEAN CORPUSCULAR HGB CONC 29.2 g/dL (31-35); MEAN CORPUSCULAR VOLUME 106.6 fL (81-99); MONOCYTES # (AUTO) 0.4 (0.2-0.8); MONOCYTES % 3.1 % (4.4-11.3); NEUTROPHILS # (AUTO) 11.6 (2.1-6.9); NEUTROPHILS % 93.4 % (38.7-80.0); PLATELET COUNT 225 x10e3/uL (140-360); RED BLOOD COUNT 2.57 x10e6/uL (3.6-5.1); RED CELL DISTRIBUTION WIDTH 14.7 % (11.7-14.4)
[2021-11-18 06:31] LABS: ALBUMIN 2.8 g/dL (3.5-5.0); ALBUMIN/GLOBULIN RATIO 0.9 (0.8-2.0); ANION GAP 14.1 mmol/L (8-16); CALCIUM 8.7 mg/dL (8.4-10.2); CREATININE, SERUM 1.82 mg/dL (0.57-1.11); POTASSIUM 5.1 mmol/L (3.5-5.1)
[2021-11-18 07:44] LABS: LYMPHOCYTES % (MANUAL) 3 % (19-48); MONOCYTES % (MANUAL) 2 % (3.4-9.0); NEUTROPHILS % (MANUAL) 95 % (40-74); PLATELET ESTIMATE ADEQUATE; PLATELET MORPHOLOGY COMMENT NORMAL
[2021-11-18 07:46] LABS: HYPOCHROMASIA MODERATE
[2021-11-18] MEDS: NINTEDANIB ESYLATE 150 MG PO SCH ×3 (08:00→17:10)
[2021-11-18] MEDS: INSULIN REGULAR, HUMAN 100 UNIT/1 ML SQ SCH ×4 (08:00→22:16)
[2021-11-18] MEDS: [UNRECOGNIZED DRUG - MIXTURE] TOP SCH ×2 (09:00→17:10)
[2021-11-18] MEDS: PANTOPRAZOLE SOD 40 MG TABEC PO SCH (09:45)
[2021-11-18] MEDS: METHYLPREDNISOLONE SOD SUCC 40 MG/ML VIAL 1ML IV SCH ×2 (09:45→22:02)
[2021-11-18] MEDS: FLUCONAZOLE 200 MG/100 ML 100 ML IV SCH (09:46)
[2021-11-18] MEDS: BALSAM PERU/CASTOR OIL 60 GM OINT...G. TP SCH (09:46)
[2021-11-18] MEDS: BUSPIRONE HCL 5 MG TAB PO SCH ×3 (09:46→22:00)
[2021-11-19] VITALS: BP 98/48
== END 2021-11-19 05:45 | disposition expired | DRG 871 ==
LOC: ER 20:48 → ERHOLD 11-16 00:10 → ICU 11-16 14:38 → MED/SURG2 11-17 17:40
PROVIDERS: ADMIT Internal Medicine; ATTEND Internal Medicine
PROC: 02HV33Z Insertion of Infusion Device into Superior Vena Cava, Percutaneous Approach (ICD-10-PCS; principal; 2021-11-16)
PROC: 3E043XZ Introduction of Vasopressor into Central Vein, Percutaneous Approach (ICD-10-PCS; 2021-11-16)
DX: A41.9 Sepsis, unspecified organism (principal); I50.33 Acute on chronic diastolic (congestive) heart failure; J96.21 Acute and chronic respiratory failure with hypoxia; J18.9 Pneumonia, unspecified organism; R65.21 Severe sepsis with septic shock; J69.0 Pneumonitis due to inhalation of food and vomit; I13.0 Hypertensive heart and chronic kidney disease with heart failure and stage 1 through stage 4 chronic kidney disease, or unspecified chronic kidney disease; E11.52 Type 2 diabetes mellitus with diabetic peripheral angiopathy with gangrene; N17.9 Acute kidney failure, unspecified; I96 Gangrene, not elsewhere classified; B37.49 Other urogenital candidiasis; T83.018A Breakdown (mechanical) of other urinary catheter, initial encounter; E11.22 Type 2 diabetes mellitus with diabetic chronic kidney disease; J84.10 Pulmonary fibrosis, unspecified; Z99.81 Dependence on supplemental oxygen; E11.65 Type 2 diabetes mellitus with hyperglycemia; N18.9 Chronic kidney disease, unspecified; J44.9 Chronic obstructive pulmonary disease, unspecified; M06.9 Rheumatoid arthritis, unspecified; R33.9 Retention of urine, unspecified; Z88.8 Allergy status to other drugs, medicaments and biological substances; Z91.012 Allergy to eggs; Z66 Do not resuscitate; R13.10 Dysphagia, unspecified; N81.10 Cystocele, unspecified; N81.6 Rectocele; N95.2 Postmenopausal atrophic vaginitis; N36.41 Hypermobility of urethra; E66.9 Obesity, unspecified; Z68.29 Body mass index [BMI] 29.0-29.9, adult; D64.9 Anemia, unspecified
CPT/HCPCS: 36415; 51700; 71045; 80048; 80053; 81001; 82948; 83605; 85025; 85610; 85730; 87040; 87086; 93005; 94799; 99251; 99285; J0456; J0696; J1450; J1817; J2920; J7030; J7050; J7799